=== PATIENT | male | born 1990 | race Caucasian/White ===

== ENCOUNTER → 2017-07-30 12:29 | Outpatient (CLI) | payer OTHER, SELFPAY | PROVIDERS: Family Provider Internal Medicine; PCP Internal Medicine; Visit Provider Nurse Practitioner Family | DX: L03.115 Cellulitis of right lower limb (principal) | CPT/HCPCS: 87070; 87075; 87077; 87205 ==

== ENCOUNTER 2019-11-26 05:42 | Emergency (ER) | payer OTHER, MEDICAID, SELFPAY ==
[2019-01-12 16:16] VITALS: BMI 23.8
[2019-11-26 05:49] VITALS: BP 130/72; PULSE 68; RESP 16; TEMP 36.4; O2SAT 100; BMI 26.4
--- NOTE | 2019-11-26 05:52 | RAD_ITS ---
STUDY: X-RAY - RIGHT FOOT CLINICAL: Male, 29 years old. ROLLED ANKLE LAST NIGHT, RIGHT FOOT PAIN TECHNIQUE: 3 view(s) of the foot. COMPARISON: None. FINDINGS: Normal talus, calcaneus, and tarsal bones. Normal visualized subtalar, talonavicular, calcaneocuboid, tarsal and tarsometatarsal articulations. Normal metatarsi. Normal metatarsophalangeal joint of the great toe. Normal tibial and fibular sesamoid bones. Normal interphalangeal joint of the great toe. Normal phalanges of the great toe. Normal second through fifth metatarsophalangeal joints. Normal interphalangeal joints and phalanges of the lesser toes. The soft tissue structures are unremarkable. RAD/Foot min 3 Views IMPRESSION: Normal x-ray examination of the foot. Electronically Signed: Nikita James MD at 6:25 EDT , Service support ,
--- NOTE | 2019-11-26 05:57 | RAD_ITS ---
STUDY: X-RAY - RIGHT ANKLE REASON FOR EXAM: Male, 29 years old. ROLLED ANKLE LAST NIGHT, RIGHT FOOT PAIN TECHNIQUE: 3 view(s) of the ankle. COMPARISON: None. FINDINGS: Normal visualized distal tibia and fibula. Normal medial and lateral malleoli. Normal tibiotalar articulation and ankle mortise. Normal visualized talus and calcaneus. The visualized subtalar, talonavicular, calcaneocuboid and tarsal articulations are normal. There is lateral soft tissue swelling. RAD/Ankle min 3 Views IMPRESSION: Normal x-ray examination of the ankle. Electronically Signed: Nikita James MD at 6:22 EDT , Service support ,
--- NOTE | 2019-11-26 06:22 | ED.VIS.LOWEX ---
History of Present Illness Chief Complaint: Lower Extremity Injury Informant: Patient Occurred: Yesterday Mechanism/Context: Injury - stepped on a branch and rolled/inverted right ankle Context: Sudden Onset Timing: Continuous Quality of Pain: Aching Location: lateral right ankle Current Severity: Moderate Maximum Severity: Moderate Worsened by: walking, moving Relieved by: rest, remaining still Associated Symptoms: Negative for: Parasthesia, Weakness, Loss of Funtion - able to move, but not able to WB on RLE Narrative: Denies any other injury. No numbness in toes. Past Medical History - Allergies and Home Meds Allergies/Adverse Reactions: Allergies sulfamethoxazole [From Bactrim] Allergy (Verified 09/24/16 05:18) Hives trimethoprim [From Bactrim] Allergy (Verified 09/24/16 05:18) Hives Primary Care Physician: Maria Luisa Cotter MD [Primary Care Provider] - Past Medical History: None Smoking Status: Current every day smoker Review of Systems General: Denies: Chills, Fever, Sweats Musculoskeletal: Reports: Extremity Pain. Denies: Neck pain, Back pain Skin: Denies: Rash, Wounds Neurological: Denies: Headache, Weakness, Numbness Physical Exam Vital Signs/Narrative: Vital Signs Temp Pulse Resp BP Pulse Ox 11/26/19 05:49 97.6 F L 68 16 130/72 H 100 Inital Vital Signs reviewed: Yes - Extremity Exam Right Ankle: Limited ROM - Due to pain. Tenderness and swelling around the lateral malleolus. Mild tenderness at the anterior aspect of the medial malleolus, no deformity, no swelling there. No tenderness at the base of the fifth metatarsal, rest of the fibular shaft including the head, or elsewhere at the knee. No other tenderness in the foot. General: Well nourished, Well developed, - - NAD Head: Normocephalic, Atraumatic Skin: Normal color, No rash, - - Skin right lower extremity intact Neurological: Alert, Oriented x3, Cranial nerves II-XII grossly intact, Normal Strength, Normal Sensation Psychological: Normal affect, Normal Mood Diagnostic/Tx/Re-eval Clinical Impression(s) from Imaging Studies Ankle X-Ray 11/26/19 05:57 IMPRESSION: Normal x-ray examination of the ankle. Electronically Signed: Nikita James MD at 6:22 EDT , Service support , - Medical Decision Making As above x-rays are unremarkable. Patient was offered naproxen and Ultram but he declined both. He was given an Aircast, and we will try to walk him. He will be offered crutches based on how he does with the Aircast. ED Disposition - Plan for ED Patient: Disposition: Home or Assisted Living Diagnosis: Right ankle sprain Instructions: ED Sprain Ankle W X Ray Referrals: Maria Luisa Cotter MD [Primary Care Provider] - 1-2 Weeks (As needed if still having trouble walking on it)
== END 2019-11-26 06:44 | disposition home or self-care (01) ==
LOC: ED 06:44
PROVIDERS: Emergency Provider Emergency Medicine; PCP Internal Medicine
DX: S93.401A Sprain of unspecified ligament of right ankle, initial encounter (principal); X50.1XXA Overexertion from prolonged static or awkward postures, initial encounter; Y93.9 Activity, unspecified; Y92.9 Unspecified place or not applicable; F17.200 Nicotine dependence, unspecified, uncomplicated
CPT/HCPCS: 73610; 73630; 99283

== ENCOUNTER 2021-01-28 12:31 | Emergency (ER) | payer OTHER, MEDICAID, SELFPAY ==
[2021-01-28 12:32] VITALS: BP 124/79; PULSE 67; RESP 20; TEMP 36.4; O2SAT 100; BMI 26.4
--- NOTE | 2021-01-28 13:05 | CT_ITS ---
STUDY: CT SOFT TISSUE NECK WITH CONTRAST REASON FOR EXAM: Male, 30 years old. Dysphagia RADIATION DOSAGE (If Supplied By Facility): CTDIvol = ( 19.86 ) mGy, DLP = ( 507.98 ) mGycm TECHNIQUE: The patient was scanned in a multi-detector CT scanner. High resolution transaxial imaging was performed following intravenous administration of IV 100ML ISOVUE 300. Sagittal and coronal images were reconstructed. Individualized dose optimization techniques were used for this CT. COMPARISON: None. FINDINGS: Normal bilateral parotid glands. Normal bilateral pool attendant spaces. Normal bilateral parapharyngeal spaces. Normal bilateral carotid spaces. Normal bilateral sublingual and submandibular glands and spaces. Normal visualized nasopharynx. Normal retropharyngeal space. Normal perivertebral space. Normal visualized bilateral faucial tonsils. The visualized tongue, tongue base and oropharynx are normal. The visualized cervical lymph nodes (levels I-) are within normal size limits, and maintain normal morphology. There is no demonstrated solid or cystic mass lesion. There is no abnormal contrast enhancement. Asymmetry of the right piriform sinus. There is a 1.3 cm x 1.8 cm x 1.1 cm hypodensity causing distortion of the right piriform sinus. This may represent an area of phlegmon. No definite abscess is seen at this time. Normal bilateral lobes of the thyroid gland. Normal visualized pulmonary apices. Normal visualized paranasal sinuses. Normal visualized cervical spine. CT/Soft Tissue Neck WITH Contrast IMPRESSION: Asymmetry of the right piriform sinus. There is a 1.3 cm x 1.87 x 1.1 sono hypodensity causing distortion of the right piriform sinus. Possible phlegmon at that site. Electronically Signed: Santino Hoff MD at 13:59 EDT , Service support ,
--- NOTE | 2021-01-28 14:57 | EX.ED.DYSGE1 ---
HPI History of Present Illness Chief Complaint: Sore Throat Informant: patient Narrative Narrative: 30-year-old male presenting with sore throat. He states this started last night. He complains of painful swallowing. Denies difficulty swallowing or drooling. He states pain is in the right side of his throat when swallowing. Denies fever. Denies cough, rhinorrhea, other symptoms. Patient states he has a history of strep pharyngitis and this feels similar. Prior similar symptoms: Yes Recent Illness/Hospitalization: No PFSH PFSH Medical History (Updated 01/28/21 @ 14:[address] Beth Garcia MD) Tuberculosis Home Medications NK 01/28/21 [History Last Taken Unknown] Allergy/AdvReac Type Severity Reaction Status Date / Time sulfamethoxazole Allergy Hives Verified 01/28/21 13:00 [From Bactrim] trimethoprim [From Bactrim] Allergy Hives Verified 01/28/21 13:00 Family History Grandmother Breast cancer Surgical History micro disectomy Versiletomy lower left abdomen Social History Smoking Status: Former smoker quit date: 01/01/19 Tobacco: How many years used: 7 alcohol intake: never substance use type: does not use what type of physical activity do you participate in: weight training ROS ROS ED Constitutional Constitutional ED: Denies fever(s) Eyes Eyes: Denies change in vision ENT ENT ED: Reports sore throat; Denies rhinorrhea Cardiovascular Cardiovascular: Denies chest pain or palpitations Respiratory/Chest Respiratory/Chest: Denies cough or dyspnea Gastrointestinal Gastrointestinal: Denies abdominal pain, diarrhea, nausea or vomiting Genitourinary Genitourinary ED: Denies dysuria Musculoskeletal Musculoskeletal: Denies myalgias Integumentary Denies rash Neurologic Neurologic: Denies headache(s) Psychiatric Psychiatric: Denies suicidal thoughts EXAM Physical Exam Const Vital Signs: 01/28/21 12:32 Temperature 97.6 F L Temperature Source Temporal Pulse Rate 67 Respiratory Rate 20 H Blood Pressure 124/79 H Blood Pressure Mean 94 Pulse Ox 100 Oxygen Delivery Method Room Air Positive well nourished and well developed General Appearance ED: well developed HEENT Reports normocephalic and head/scalp atraumatic HEENT Narrative: Mild pharyngeal erythema with no exudate. Uvula midline. Eyes PERRL and EOMs intact bilaterally Neck supple General: Negative for tenderness Chest Wall inspection of chest normal Resp normal respiratory effort and clear to auscultation bilaterally Cardio regular rate and regular rhythm no CVA tenderness Extremity normal to inspection Neuro oriented x3 Sensorium / Orientation: alert Psych mental status grossly normal Skin no rashes or lesions noted MDM MDM MDM Narrative Medical decision making narrative: Rapid strep is negative. He was given Decadron. CT soft tissue neck shows asymmetry of the right piriform sinus. 1.3 cm x 1.8 x 1.1 cm hypodensity causing distortion of the right piriform sinus. Possible phlegmon at that site. No abscess. Findings were discussed with Dr. Robertson. Patient will follow-up as an outpatient for endoscopy. Patient is agreeable with this plan. Advised signs and symptoms for which to return to the ED. Lab Data Attestation: I reviewed the patient's lab results. Radiography Diagnostic Testing: Radiology Impression Soft Tissue Neck CT 01/28/21 13:05 IMPRESSION: Asymmetry of the right piriform sinus. There is a 1.3 cm x 1.87 x 1.1 sono hypodensity causing distortion of the right piriform sinus. Possible phlegmon at that site. Electronically Signed: Santino Hoff MD at 13:59 EDT , Service support , Discharge Plan Triage Chief Complaint: Sore Throat ED Provider: Beth Garcia Dx/Rx/DC Orders Clinical Impression: Odynophagia Instructions: ED Pharyngitis, Viral Prescriptions: No Action NK RF: 0 Primary Care Provider: Maria Luisa Cotter Referrals: Pierre Robertson MD [STAFF PHYSICIAN] - Maria Luisa Cotter MD [Primary Care Provider] - Disposition Disposition: Home, Self Care
[2021-01-28] MEDS: dexAMETHasone 4 MG Tablet PO (15:19)
[2021-01-28 15:23] VITALS: PULSE 71; RESP 16
--- NOTE | 2021-01-28 15:23 | ED.RN ---
THIS NURSE REVIEWED D/C INSTRUCTIONS WITH PT. PT VERBALIZED UNDERSTANDING OF INSTRUCTIONS. IV D/C. IV CATHETER INTACT. PT TOLERATED WELL. PT DENIES FURTHER NEEDS OR QUESTIONS AT THIS TIME. PT AMBULATES FROM ROOM ON OWN WITHOUT ASSISTANCE FROM STAFF
== END 2021-01-28 15:24 | disposition home or self-care (01) ==
PROVIDERS: Emergency Provider Emergency Medicine; PCP Internal Medicine
DX: R13.10 Dysphagia, unspecified (principal); Z87.891 Personal history of nicotine dependence
CPT/HCPCS: 70491; 87880; 99284; J7030; Q9967

== ENCOUNTER 2021-02-22 21:15 | Emergency (ER) | payer OTHER, MEDICAID, SELFPAY ==
[2021-02-22 21:16] VITALS: BP 124/79; PULSE 76; RESP 18; TEMP 36.3; O2SAT 98; BMI 25.1
--- NOTE | 2021-02-22 21:20 | EKG12_ITS ---
Test Reason : CP Blood Pressure : / mmHG Vent. Rate : 063 BPM Atrial Rate : 063 BPM P-R Int : 168 ms QRS Dur : 112 ms QT Int : 390 ms P-R-T Axes : 064 099 037 degrees QTc Int : 399 ms Normal sinus rhythm Normal ECG Confirmed by ANNE NASH, BERNICE ([id number]), editor book VELMA KING ([id number]) on 02/25/2021 2:22:23 PM Referred By: PL/UG Confirmed By:BERNICE RODRÍGUEZ MD
--- NOTE | 2021-02-22 22:33 | EDS_ITS ---
HPI History of Present Illness Chief Complaint: Chest Pain Narrative Narrative: 30-year-old male presenting with left-sided chest pain which he describes as a dull ache. He notes that when he woke up from sleep. He states he is not have shortness of breath, fever, chills, cough. He states he has no cardiac risk factors. He is a non-smoker. He does not have lightheadedness or dizziness. Is not been diaphoretic. Patient has no DVT/PE risk factors. He states he feels well. PFSH ON LICENSE OF [facility] Medical History Tuberculosis Home Medications Kratom 1 tab PO.IVFORM DAILY 02/22/21 [History Last Taken Unknown] Allergy/AdvReac Type Severity Reaction Status Date / Time sulfamethoxazole Allergy Hives Verified 02/22/21 21:18 [From Bactrim] trimethoprim [From Bactrim] Allergy Hives Verified 02/22/21 21:18 Family History Grandmother Breast cancer Surgical History micro disectomy Versiletomy lower left abdomen Social History Smoking Status: Former smoker quit date: 01/01/19 Tobacco: How many years used: 7 alcohol intake: never substance use type: does not use what type of physical activity do you participate in: weight training ROS ROS ED Constitutional Constitutional ED: Denies chills, fever(s) or subjective Eyes Eyes: Denies blurry vision or change in vision ENT ENT ED: Denies rhinorrhea or sore throat Cardiovascular Cardiovascular: Reports chest pain; Denies palpitations or racing heartbeat Respiratory/Chest Respiratory/Chest: Denies cough, dyspnea, dyspnea on exertion or sputum Gastrointestinal Gastrointestinal: Denies abdominal pain, diarrhea, nausea or vomiting Genitourinary Genitourinary ED: Denies dysuria or hematuria Musculoskeletal Musculoskeletal: Denies arthralgias, back pain, myalgias or neck pain Integumentary Denies Abrasions or rash Neurologic Neurologic: Denies headache(s) or paresthesias EXAM Physical Exam Const Vital Signs: 02/22/21 21:16 Temperature 97.4 F L Temperature Source Temporal Pulse Rate 76 Respiratory Rate 18 Blood Pressure 124/79 H Blood Pressure Mean 94 Pulse Ox 98 Oxygen Delivery Method Room Air Positive well developed General Appearance ED: well developed and NAD; Negative for pallor HEENT normocephalic and atraumatic Eyes PERRL and EOMs intact bilaterally Chest Wall inspection of chest normal and palpation of chest normal Resp normal respiratory effort Effort and Inspection: respiratory distress Cardio regular rate and regular rhythm Extremity normal to inspection General Extremety ED: Negative for edema or tenderness General Extremity: Negative for edema Neuro oriented x3 Sensorium / Orientation: awake and alert Psych mental status grossly normal Skin no rashes or lesions noted General Skin Exam: Negative for jaundice or pallor Heart Score History: Slightly/Non-Suspicious ECG: Normal Age: </= 45 years Risk Factors: 1 or 2 Risk Factors Score: 1 MDM MDM MDM Narrative Medical decision making narrative: Patient presenting with left-sided dull ache in his chest. He states he has no other symptoms. He states his urged him to come to the ER for an EKG which was performed and on my interpretation it shows a normal sinus rhythm with a rate of 63 bpm without sign of ischemic change. After evaluating the patient he states that he does not want to stay for lab work or imaging. He does have equal bilateral symmetric breath sounds. His vital signs are normal. I counseled him that I only have a partial evaluation. Patient does state that his brother had an AR at 38. I counseled him that I can only tell him that his EKG looks normal and with a partial evaluation he would have to sign out AGAINST MEDICAL ADVICE. He is amenable to this. He states he has to go to work. I counseled him that if he has any worsening or new symptoms he should return to the ER for evaluation. Impression: 1. Chest pain Discharge Plan Triage Chief Complaint: Chest Pain ED Provider: George Valdez Dx/Rx/DC Orders Instructions: ED Chest Pain [facility] Prescriptions: No Action Kratom 1 tab PO.IVFORM DAILY RF: 0 Primary Care Provider: Maria Luisa Cotter Referrals: Maria Luisa Cotter MD [Primary Care Provider] - Disposition Disposition: Home, Self Care
== END 2021-02-22 22:52 | disposition left against medical advice (07) ==
LOC: ED 22:47
PROVIDERS: Emergency Provider Student in an Organized Health Care Education/Training Program
DX: R07.89 Other chest pain (principal); Z87.891 Personal history of nicotine dependence; Z53.21 Procedure and treatment not carried out due to patient leaving prior to being seen by health care provider
CPT/HCPCS: 93005; 99283

== ENCOUNTER 2023-10-30 13:29 | Emergency (ER) | payer BC, OTHER, SELFPAY ==
[2023-10-30 13:30] VITALS: BP 132/92; PULSE 57; RESP 14; TEMP 36.4; O2SAT 100; BMI 24.3
--- NOTE | 2023-10-30 14:39 | EX.ED.DYSGE1 ---
HPI <KASI Fried - Last Filed: 10/30/23 15:23> History of Present Illness Chief Complaint: General Illness Narrative Narrative: Patient is a 33-year-old male with history of chronic back pain who takes kratom, patient states has been clean for 13 years, took a break for a month, took doses the last 2 days and felt sick. Patient states he is concerned because he feels low energy, feels shaky, sweaty, nauseated. Patient states he did have 1 episode of vomiting. Patient denies any chest pain or shortness of breath. Patient denies any abdominal pain. Patient is concerned because of his liver as well as his blood sugar, he knows that kratom can affect these things. He is here for evaluation. PFSH <KASI Fried - Last Filed: 10/30/23 15:23> PFSH Medical History Tuberculosis Home Medications ?Medication ?Instructions ?Recorded ?Last Taken ?Type Kratom 1 tab PO.IVFORM DAILY 02/22/21 Unknown History ondansetron 4 mg disintegrating 4 mg PO Q8H PRN PRN Nausea #10 tabs 10/30/23 Unknown Rx tablet Allergy/AdvReac Type Severity Reaction Status Date / Time sulfamethoxazole (From Allergy Hives Verified 10/30/23 13:30 Bactrim) trimethoprim (From Bactrim) Allergy Hives Verified 10/30/23 13:30 Family History Grandmother Breast cancer Surgical History micro disectomy Versiletomy lower left abdomen Social History Smoking Status: Former smoker quit date: 01/01/19 Tobacco: How many years used: 7 alcohol intake: never substance use type: does not use what type of physical activity do you participate in: weight training ROS <KASI Fried - Last Filed: 10/30/23 15:23> ROS ED ROS Narrative Constitutional: Negative for fever, chills, weight loss. Positive generalized weakness Eyes: Negative for vision loss, vision change, double vision ENT: Negative for any sore throat, ear pain, congestion Cardiovascular: Negative for any chest pain, tightness, palpitations Respiratory: Negative for any cough, sputum production, hemoptysis, dyspnea, dyspnea on exertion, orthopnea Gastrointestinal: Negative for any abdominal pain, diarrhea, constipation, blood in stool, blood in vomit. Positive for nausea and vomiting : Negative for any urinary frequency, dysuria, retention, blood in urine Muscle skeletal: Negative for any neck pain, back pain Neurological: Negative for any headache, syncope, dizziness Skin: Negative for any rashes, itching, abrasions, lacerations Psychiatric: Negative for any depression, anxiety, stress, suicidal ideation, homicidal ideation Hematologic: Negative for any excessive bruising, easy bleeding EXAM <KASI Fried - Last Filed: 10/30/23 15:23> Physical Exam Narrative Exam Narrative: Vital signs reviewed. HEET: Head normocephalic atraumatic, TMs clear bilaterally. Posterior pharynx is clear, moist mucous membranes. Nares clear bilaterally. Neck: Supple with no lymphadenopathy or tenderness. No signs of meningismus. Cardiac: Regular rate and rhythm no murmurs gallops or rubs, equal peripheral pulses bilaterally. Respiratory: Lungs clear to auscultation bilaterally. No chest tenderness. Abdomen: Soft, nontender, nondistended. No abdominal bruit or pulsatile masses. No hepatosplenomegaly Extremities: No peripheral edema, no signs of gross trauma or deformity. Active full range of motion of all extremities. Neuro: Cranial nerves II through XII intact, no focal neurological deficits. Skin: Clean dry and intact with no rash, purpura, petechiae, vesicles or pustules. Backs/flank: No CVA tenderness, no midline spinal tenderness, no deformity. Psych: Normal mood and affect. No SI, HI or acute psychosis. Const Vital Signs: 10/30/23 13:30 10/30/23 13:30 10/30/23 14:33 Temperature 97.5 F L Temperature Source Temporal Pulse Rate 57 L 57 L Respiratory Rate 14 14 Respiratory Pattern Normal Blood Pressure 132/92 H 132/92 H Blood Pressure Mean 105 105 Pulse Ox 100 100 Oxygen Delivery Method Room Air Room Air 10/30/23 15:29 Temperature 98.1 F Temperature Source Pulse Rate 65 Respiratory Rate 16 Respiratory Pattern Blood Pressure 128/79 H Blood Pressure Mean 95 Pulse Ox 100 Oxygen Delivery Method <Dr. George Valdez DO - Last Filed: 10/31/23 16:45> Physical Exam Const Vital Signs: 10/30/23 13:30 10/30/23 13:30 10/30/23 14:33 Temperature 97.5 F L Temperature Source Temporal Pulse Rate 57 L 57 L Respiratory Rate 14 14 Respiratory Pattern Normal Blood Pressure 132/92 H 132/92 H Blood Pressure Mean 105 105 Pulse Ox 100 100 Oxygen Delivery Method Room Air Room Air 10/30/23 15:29 Temperature 98.1 F Temperature Source Pulse Rate 65 Respiratory Rate 16 Respiratory Pattern Blood Pressure 128/79 H Blood Pressure Mean 95 Pulse Ox 100 Oxygen Delivery Method [facility] <KASI Fried - Last Filed: 10/30/23 15:23> [facility] Lab Data Labs: Laboratory Results - last 24 hr 10/30/23 14:16 WBC 6.4 RBC 5.13 Hgb 15.0 Hct 45.1 MCV 87.9 MCH 29.2 MCHC 33.3 RDW Std Deviation 37.9 RDW Coeff of [place] 11.7 Plt Count 285 MPV 10.1 Immature Gran % (Auto) 0.300 Neut % (Auto) 71.2 H Lymph % (Auto) 21.9 Beadle % (Auto) 5.5 Eos % (Auto) 0.6 Baso % (Auto) 0.5 Absolute Neuts (auto) 4.5 Absolute Lymphs (auto) 1.39 Nucleated RBC % 0 Sodium 138 Potassium 4.0 Chloride 104 Carbon Dioxide 29.0 Anion Gap 5 BUN 20 H Creatinine 0.92 Estim Creat Clear Calc 120.50 Est GFR (MDRD) Af Amer 120 Est GFR (MDRD) Non-Af 100 BUN/Creatinine Ratio 21.6 H Glucose 94 Calcium 9.3 Total Bilirubin 1.10 H AST 26 ALT 30 Alkaline Phosphatase 61 Total Protein 7.7 Albumin 4.5 Globulin 3.2 Albumin/Globulin Ratio 1.4 Lipase 39 Treatment and Re-Evaluation :: Differential diagnosis includes however is not limited to: Dehydration, gastroenteritis, viral syndrome, kratom reaction Patient appears to be in no obvious respiratory distress, patient's vital signs are stable, patient appears nontoxic. Presenting to the emergency department with complaints of weakness, nausea and vomiting generalized feeling of shakiness. This could be secondary to the patient's kratom, he was not taking in the last 2 days he did take it. He also states he has been exhausted with work. Patient received some basic laboratory values, CBC CMP lipase, looking for any leukocytosis, anemia, electrode abnormality, transaminitis, kidney function test. Patient received IV fluids, Zofran. Patient will be reevaluated On reevaluation, the patient was feeling better. Patient's laboratory values showed normal CBC, patient's chemistries showed a BUN of 20 which is only slightly elevated, total bilirubin of 1.10, this is again only slightly elevated nonspecific, lipase was negative. At this time, I recommend the patient stop using kratom. The patient be given Zofran for home peer instructed to maintain hydration. All questions were answered, patient stable for discharge. <Dr. George Valdez, DO - Last Filed: 10/31/23 16:45> [facility] Narrative Medical decision making narrative: Differential diagnosis includes however is not limited to: Dehydration, gastroenteritis, viral syndrome, kratom reaction Patient appears to be in no obvious respiratory distress, patient's vital signs are stable, patient appears nontoxic. Presenting to the emergency department with complaints of weakness, nausea and vomiting generalized feeling of shakiness. This could be secondary to the patient's kratom, he was not taking in the last 2 days he did take it. He also states he has been exhausted with work. Patient received some basic laboratory values, CBC CMP lipase, looking for any leukocytosis, anemia, electrode abnormality, transaminitis, kidney function test. Patient received IV fluids, Zofran. Patient will be reevaluated On reevaluation, the patient was feeling better. Patient's laboratory values showed normal CBC, patient's chemistries showed a BUN of 20 which is only slightly elevated, total bilirubin of 1.10, this is again only slightly elevated nonspecific, lipase was negative. At this time, I recommend the patient stop using kratom. The patient be given Zofran for home peer instructed to maintain hydration. All questions were answered, patient stable for discharge. This patient was seen with a PA/[employer]PER[employer] Individually assessed they patient including history and physical. I have reviewed everything on the chart that is available and agree with the documentation provided by the PA/[employer]PERVIS[employer] including discussion about the assessment, treatment plan, discussion, and return precautions. 33-year-old male presenting with weakness, nausea, vomiting, feeling shaky. Patient does use kratom and states has been using last 2 days after having a break from this. He is concerned he might have liver injury or renal injury. IV line was established and patient was given IV fluids and Zofran. CBC and CMP unremarkable. Patient counseled to discontinue use of kratom. Discharged home in stable condition. Lab Data Attestation: I reviewed the patient's lab results. Labs: Laboratory Results - last 24 hr 10/30/23 14:16 WBC 6.4 RBC 5.13 Hgb 15.0 Hct 45.1 MCV 87.9 MCH 29.2 MCHC 33.3 RDW Std Deviation 37.9 RDW Coeff of [place] 11.7 Plt Count 285 MPV 10.1 Immature Gran % (Auto) 0.300 Neut % (Auto) 71.2 H Lymph % (Auto) 21.9 Beadle % (Auto) 5.5 Eos % (Auto) 0.6 Baso % (Auto) 0.5 Absolute Neuts (auto) 4.5 Absolute Lymphs (auto) 1.39 Nucleated RBC % 0 Sodium 138 Potassium 4.0 Chloride 104 Carbon Dioxide 29.0 Anion Gap 5 BUN 20 H Creatinine 0.92 Estim Creat Clear Calc 120.50 Est GFR (MDRD) Af Amer 120 Est GFR (MDRD) Non-Af 100 BUN/Creatinine Ratio 21.6 H Glucose 94 Calcium 9.3 Total Bilirubin 1.10 H AST 26 ALT 30 Alkaline Phosphatase 61 Total Protein 7.7 Albumin 4.5 Globulin 3.2 Albumin/Globulin Ratio 1.4 Lipase 39 Discharge Plan Triage Chief Complaint: General Illness ED Midlevel Provider: Zurdo Lovell ED Provider: George Valdez Dx/Rx/DC Orders Clinical Impression: Mild nausea and vomiting Instructions: Self-Care for Vomiting and Diarrhea, ED Vomiting (Adult) Prescriptions: New ondansetron 4 mg tablet,disintegrating 4 mg PO Q8H PRN PRN (Reason: Nausea) Qty: 10 0RF No Action Kratom 1 tab PO.IVFORM DAILY Primary Care Provider: Care Physician,No Primary Referrals: Care Physician,No Primary [Primary Care Provider] - Print Language: Senegalese Disposition Disposition: Home, Self Care Discharge Date/Time: 10/30/23 16:00
[2023-10-30 14:54] LABS: Absolute Lymphocyte Count 1.39 X10^3/uL (0.83-4.51); Absolute Neutrophil Count 4.5 X10^3/uL (2.0-7.7); Basophil# 0.03 X10^3/uL; Basophil% 0.5 % (0-1); Eosinophil# 0.04 X10^3/uL; Eosinophils% 0.6 % (0-5); Hematocrit 45.1 % (40-54); Lymphocyte # 1.39 X10^3/ul (0.83-4.51); Lymphocyte % 21.9 % (19-41); Mean Corp Hgb Conc 33.3 g/dL (32-36); Mean Corpuscular Hgb 29.2 pg (27.0-32.0); Mean Corpuscular Volume 87.9 fL (80-94); Mean Platelet Vol. 10.1 fl (6.2-12.0); Monocyte# 0.35 X10^3/uL; Monocyte% 5.5 % (0-10); NRBC Flagged by Analyzer 0 % (0-5); Neutrophil # 4.52 X10^3/uL (2.7-7.7); Neutrophil % 71.2 % (47-70); Platelet Count 285 K/mm3 (150-450); RBC Distribution Width CV 11.7 % (11.6-14.6); RBC Distribution Width SD 37.9 fl (35.1-43.9); Red Blood Count 5.13 M/mm3 (4.6-6.2); White Blood Count 6.4 K/mm3 (4.4-11.0)
[2023-10-30] MEDS: Ondansetron 4 MG/2 ML Vial IV (15:02)
[2023-10-30] MEDS: 0.9% Normal Saline (1000mL) 1,000 ML 999 ML IV (15:02)
[2023-10-30 15:15] LABS: ALB/GLOB Ratio 1.4 RATIO (0.9-2.4); AST(SGOT) 26 U/L (15-37); Alanine Aminotransfer ALT/SGPT 30 U/L (16-61); Albumin, Serum 4.5 g/dL (3.2-5.0); Alkaline Phosphatase 61 U/L (45-117); Anion Gap 5 (5-15); BUN 20 mg/dL (7-18); BUN/Creat Ratio 21.6 RATIO (10-20); Calcium,Total 9.3 mg/dL (8.5-10.1); Chloride 104 mmol/L (98-107); Creatinine, Serum 0.92 mg/dL (0.70-1.30); EST Glomerular Filtration Rate 100 mL/min (>60); Est Glom Filt Rate - Afr Amer 120 mL/min (>60); Globulin 3.2 g/dL (2.2-4.2); Glucose 94 mg/dL (74-106); Lipase 39 U/L (13-75); Protein, Total 7.7 g/dL (6.4-8.2); Sodium Level 138 mmol/L (136-145)
[2023-10-30 15:29] VITALS: BP 128/79; PULSE 65; RESP 16; TEMP 36.7; O2SAT 100
== END 2023-10-30 16:00 | disposition home or self-care (01) ==
PROVIDERS: Nurse Practitioner; Emergency Provider Student in an Organized Health Care Education/Training Program; Visit Provider Student in an Organized Health Care Education/Training Program
DX: R11.2 Nausea with vomiting, unspecified (principal); M54.9 Dorsalgia, unspecified; G89.29 Other chronic pain; Z87.891 Personal history of nicotine dependence; Z79.899 Other long term (current) drug therapy
CPT/HCPCS: 80053; 83690; 85025; 96361; 96374; 99282; J7030; J2405

== ENCOUNTER 2024-12-14 17:03 | Emergency (ER) | payer BC, OTHER, SELFPAY ==
[2024-12-14 17:04] VITALS: BP 175/93; PULSE 98; RESP 16; TEMP 36.3; O2SAT 100
[2024-12-14 17:15] VITALS: BMI 25.5
--- NOTE | 2024-12-14 17:20 | EX.ED.GENINJ ---
HPI History of Present Illness Chief Complaint: Laceration [facility] Medical History Tuberculosis Home Medications ?Medication ?Instructions ?Recorded ?Last Taken ?Type Kratom 1 tab PO.IVFORM DAILY 02/22/21 Unknown History ondansetron 4 mg disintegrating 4 mg PO Q8H PRN PRN Nausea #10 tabs 10/30/23 Unknown Rx tablet cephalexin 500 mg capsule 500 mg PO Q8H #15 caps 12/14/24 Unknown Rx Allergy/AdvReac Type Severity Reaction Status Date / Time sulfamethoxazole (From Allergy Hives Verified 12/14/24 17:06 Bactrim) trimethoprim (From Bactrim) Allergy Hives Verified 12/14/24 17:06 Family History Grandmother Breast cancer Surgical History micro disectomy Versiletomy lower left abdomen Social History Smoking Status: Former smoker quit date: 01/01/19 Tobacco: How many years used: 7 alcohol intake: never substance use type: does not use what type of physical activity do you participate in: weight training EXAM Physical Exam Const Vital Signs: 12/14/24 17:04 Temperature 97.4 F L Temperature Source Oral Pulse Rate 98 Respiratory Rate 16 Blood Pressure 175/93 H Blood Pressure Mean 120 Pulse Ox 100 Oxygen Delivery Method Room Air MDM MDM MDM Narrative Medical decision making narrative: HISTORY OF PRESENT ILLNESS: Chief complaint: Thumb laceration 34-year-old male states prior to arrival was doing yard work and he cut the pad of his thumb off with a machete. REVIEW OF SYSTEMS: Pertinent positives: Thumb laceration Pertinent negatives: Loss of sensation PHYSICAL EXAM: Nursing triage notes reviewed, Vital signs reviewed Constitutional: please see mdm Neuro: No intact 5/5 strength with ok sign (median), intact finger abduction (ulnar) intact wrist extension (radial n). Intact sensation in the radial, ulnar, and median nerve distributions.. Skin: Proximally sick centimeter curvilinear laceration noted to the palmar surface of left thumb. Active bleeding noted. No pulsatile bleeding noted. No obvious tendinous involvement noted. MEDICAL DECISION MAKING: Chief Complaint: please see HPI External records reviewed: Reviewed prior imaging Factors affecting care: none Social determinants of health: none History obtained from others: none Consults: none MDM Narrative: Patient was initially hypertensive with blood pressure 175 /93 otherwise afebrile nontoxic. Exam with laceration as above. I considered the following differential diagnosis: Open fracture, thumb laceration I obtained and x-ray of the hand to further determine if the patient was suffering from a life-threatening etiology. Specifically to assess for signs of an open fracture Performed a digital block with lidocaine to further explore the wound ALL IMAGES (IF OBTAINED) HAVE BEEN PERSONALLY REVIEWED AND INTERPRETED BY MYSELF. Offered x-ray of the hand rule out foreign bodies or open fracture. Patient was alert and orient x 3 refused x-rays secondary to cost. The patient suffered lacerations to the left thumb On exam there was no evidence of foreign bodies. There was no evidence of neurovascular injury. Patient had a normal distal vascular exam, and had intact ROM and sensation. There was also no evidence of tendon injury, with normal distal full range of motion, flexion, extension, abduction, abduction. There is no evidence of local joint space involvement at this time. Wound care applied (irrigation and/or local cleansing solution). Laceration repair was then performed please see procedure note. The patient was given signs and symptoms warnings for infection, such as increasing pain, redness, swelling, associated heat, pus or fever. Given close hand follow-up Procedure: Laceration repair. The procedure was performed by myself. Indication: Wound repair Risks and benefits: risks, benefits and alternatives were discussed Consent: Consent was obtained. Wound Details: Curvilinear approximate 6 cm laceration approximately 2 mm deep, no obvious foreign bodies. No obvious tendinous involvement noted Anesthesia: Digital block with 1% lidocaine Wound prep: Patient was prepped and draped in the usual sterile fashion. Tetanus: Updated today Irrigation Solution: Saline Wound Preparation: Tourniquet placed. Digital block placed. Soaked in paroxetine and peroxide solution for approximately 15 minutes. The wound was explored to its base in a bloodless field. Procedure Description: Placed approximately nine 5-0 Chromic Gut sutures with close approximation The patient and/or family, caregivers express understanding. The patient and/or family, caregivers agrees with the plan. Shared decision making: I will have a discussion with the patient and or visitors regarding risk/benefits of further testing or admission. They will be made aware of of the risk/benefits inherent in this decision they will be given the opportunity to voice understanding. Total critical care time today provided was at least 0 minutes. This excludes separately billable procedures. Critical care time (if documented) is secondary to the patient having high probability of clinically significant/life threatening deterioration in the patient's condition which required my urgent intervention. Impression: 1. Left thumb laceration 2. Encounter for tetanus immunization Dispo: Discharge home This note was generated with [employer] dictation software. It may contain incorrect words, spelling, and punctuation that were not noted in review of the chart prior to signing. Discharge Plan Triage Chief Complaint: Laceration ED Provider: Weston Stanton Dx/Rx/DC Orders Instructions: ED Laceration, All Closures Prescriptions: New cephalexin 500 mg capsule 500 mg PO Q8H Qty: 15 0RF No Action Kratom 1 tab PO.IVFORM DAILY ondansetron 4 mg tablet,disintegrating 4 mg PO Q8H PRN PRN (Reason: Nausea) Qty: 10 0RF Primary Care Provider: Care Physician,No Primary Referrals: Kenan Singleton MD [Med Staff - Active Staff] - Activity Restrictions/Additional Instructions: Thank you for trusting us with your care today! Your laceration was repaired with observable sutures. These will resorb spontaneously. You do not need to return to get them removed. Please keep your wound clean and dry. Please cleanse with peroxide and Neosporin for the first 3 to 4 days. After which soap and water should be fine Please take Tylenol (2 pills, 650 mg), ibuprofen (2 pills, 400 mg) every 6 hours as needed for pain and fever control. Please return to the emergency department if your symptoms change or worsen. Specifically no signs of infection which is redness, white-yellow discharge, increasing pain, fevers Please follow with your primary care physician for further outpatient evaluation and management. Print Language: Fijian Disposition Disposition: Home, Self Care
[2024-12-14] MEDS: Lidocaine 1% (20 ml mdv) 20 ML Vial 5 ML INFILT (18:14)
== END 2024-12-14 18:27 | disposition home or self-care (01) ==
PROVIDERS: Emergency Provider Emergency Medicine; Referring Provider Emergency Medicine; Visit Provider Emergency Medicine
DX: S61.012A Laceration without foreign body of left thumb without damage to nail, initial encounter (principal); Z87.891 Personal history of nicotine dependence; Z23 Encounter for immunization; W26.8XXA Contact with other sharp object(s), not elsewhere classified, initial encounter; Y93.89 Activity, other specified; Y92.096 Garden or yard of other non-institutional residence as the place of occurrence of the external cause
CPT/HCPCS: 12002; 90715; 99283